=== PATIENT | female | born 1985 | race Caucasian/White ===

== ENCOUNTER 2020-10-20 07:02 | Inpatient (IN) | payer OTHER ==
[~2020-10-20 07:02] MED LIST: Scopolamine 1.5 MG Transdermal Patch TOP ONE; fentaNYL 250 MCG/5 ML SDV ONE
[2020-10-20] MEDS ORDERED: Dexamethasone 4 MG/ML SDV ONE (07:03)
[2020-10-20] MEDS ORDERED: Neostigmine Methylsulfate 1 MG/ML 5 ML Syringe ONE (07:03)
[2020-10-20] MEDS ORDERED: Glycopyrrolate 0.2 MG/ML 5 ML MDV ONE (07:03)
[2020-10-20] MEDS ORDERED: Rocuronium 50 MG/5 ML Vial ONE (07:03)
[2020-10-20] MEDS ORDERED: Succinylcholine 200 MG/10 ML MDV ONE (07:03)
[2020-10-20] MEDS ORDERED: Ondansetron 4 MG/2 ML SDV ONE (07:03)
[2020-10-20] MEDS ORDERED: Propofol 200 MG/20 ML SDV ONE (07:03)
[2020-10-20] MEDS ORDERED: Lactated Ringers 1,000 ML ONE (07:05)
[2020-10-20] MEDS ORDERED: Acetaminophen 500 MG Tab PO ONE (07:45)
[2020-10-20] MEDS ORDERED: Celecoxib 200 MG Cap PO ONE (07:45)
[2020-10-20] MEDS ORDERED: Scopolamine 1.5 MG Transdermal Patch TOP ONE (07:45)
[2020-10-20] MEDS ORDERED: cefOXitin 2 GM Vial ONE (07:49)
[2020-10-20] MEDS: Dextrose 5%-Lactated Ringers 1,000 ML IV SCH ×2 (08:40→12:49)
[2020-10-20] MEDS ORDERED: cefOXitin 2 GM in Sodium Chloride 0.9% 50 ML IV ONE (09:00)
[2020-10-20] MEDS ORDERED: ceFAZolin 2 GM in Premix Bag 1 BAG IV ONE (09:00)
[2020-10-20] MEDS ORDERED: Ketamine 50 MG in Sodium Chloride 0.9% 49.5 ML IV SCH (09:30)
[2020-10-20] MEDS ORDERED: Ketamine 500 MG/5 ML MDV IV SCH (09:30)
[2020-10-20] MEDS ORDERED: Ropivacaine 50 ML, dexAMETHasone 8 MG, EPINEPHrine 0.4 MG, Sodium Chloride 0.9% 27.6 ML NERVRT SCH ×4 (09:30)
[2020-10-20] MEDS ORDERED: Magnesium Sulfate 3 GM in Sodium Chloride 0.9% 100 ML IV SCH (09:30)
[2020-10-20] MEDS ORDERED: fentaNYL 250 MCG/5 ML SDV ONE (09:51)
[2020-10-20] MEDS ORDERED: Magnesium Sulfate 4.8 GM in Sodium Chloride 0.9% 250 ML IV ONE (10:00)
[2020-10-20] MEDS ORDERED: Labetalol 20 MG/4 ML Syringe ONE (10:17)
[2020-10-20] MEDS ORDERED: fentaNYL 100 MCG/2 ML SDV IVPUSH ONE ×2 (11:08→11:45)
[2020-10-20] MEDS ORDERED: hydrOXYzine HCL 100 MG/2 ML SDV IM ONE (11:08)
[2020-10-20] MEDS ORDERED: Ondansetron 4 MG/2 ML SDV IVPUSH ONE (11:23)
[2020-10-20] MEDS ORDERED: amLODIPine 5 MG Tab PO ONE (12:30)
[2020-10-20] MEDS: HYDROmorphone 1 MG/ML Syringe IV PRN ×5 (12:59→22:55)
[2020-10-20] MEDS: Ondansetron 4 MG/2 ML SDV IVPUSH PRN ×3 (12:59→23:01)
[2020-10-20] MEDS ORDERED: Calcium Gluconate 10% 1 GM/10 ML SDV IVPUSH PRN (13:00)
[2020-10-20] MEDS ORDERED: diphenhydrAMINE 50 MG/ML SDV IVPUSH PRN (13:00)
[2020-10-20] MEDS ORDERED: Labetalol 20 MG/4 ML Syringe IVPUSH PRN (13:00)
[2020-10-20] MEDS ORDERED: HYDROmorphone 0.5 MG/0.5 ML Syringe IVPUSH PRN (13:00)
[2020-10-20] MEDS ORDERED: Acetaminophen 500 MG Tab PO PRN (13:00)
[2020-10-20] MEDS: hydrOXYzine HCL 100 MG/2 ML SDV IM PRN ×2 (13:05→19:40)
[2020-10-20] MEDS ORDERED: Dextrose 5%-Lactated Ringers 1,000 ML IV SCH (14:00)
[2020-10-20] MEDS: Cyclobenzaprine 10 MG Tab PO PRN ×2 (14:20→23:52)
[2020-10-20] MEDS: Acetaminophen 500 MG Tab PO SCH ×2 (15:18→22:26)
[2020-10-20] MEDS: Pantoprazole 40 MG Vial IVPUSH SCH (15:44)
[2020-10-20] MEDS: Metoclopramide 10 MG/2 ML SDV IVPUSH PRN ×2 (15:45→23:33)
[2020-10-20] MEDS: MVI, Adult with Vitamin K 10 ML, Thiamine 200 MG, Zinc/Copper/Manganese/Selenium 1 ML i... IV SCH ×4 (16:41)
[2020-10-20] MEDS: cefOXitin 2 GM in Sodium Chloride 0.9% 50 ML IV SCH ×2 (17:11→23:42)
[2020-10-20] MEDS: Heparin Sodium 5,000 Units/ML Vial SUBCUT SCH (19:47)
[2020-10-20] MEDS: LORazepam 2 MG/ML SDV IVPUSH PRN (20:04)
[2020-10-21] MEDS: HYDROmorphone 1 MG/ML Syringe IV PRN ×3 (00:51→06:02)
[2020-10-21] MEDS: Ondansetron 4 MG/2 ML SDV IVPUSH PRN ×3 (03:02→13:17)
[2020-10-21] MEDS: Metoclopramide 10 MG/2 ML SDV IVPUSH PRN (05:59)
[2020-10-21] MEDS: Acetaminophen 500 MG Tab PO SCH (06:05)
[2020-10-21] MEDS: cefOXitin 2 GM in Sodium Chloride 0.9% 50 ML IV SCH ×3 (06:06→18:26)
[2020-10-21] MEDS ORDERED: Dextrose 5%-Lactated Ringers 1,000 ML IV SCH (07:15)
[2020-10-21] MEDS: HYDROmorphone/Normal Saline 15 MG/30 ML PCA IV PRN (07:37)
[2020-10-21] MEDS: Heparin Sodium 5,000 Units/ML Vial SUBCUT SCH ×2 (07:46→20:51)
[2020-10-21] MEDS ORDERED: Naloxone 0.4 MG/ML SDV IV PRN (08:00)
--- NOTE | 2020-10-21 08:51 | PN ---
DATE OF SERVICE: 10/21/2020 SUBJECTIVE: Ambika is postoperative day #1. Her upper GI results show transit of oral contrast. She did have an emesis of 70 mL but has been dry heaving. There is a small amount of blood, thought to be bleeding from the anastomosis. She has been afebrile. Blood pressure has been elevated, and she was given labetalol, also with a magnesium sulfate IV, and this was discontinued, and calcium gluconate was given to reverse its effects. Oral intake 110, emesis 70, and output 1100. JYOTI drain put out 90 mL of a light pink drainage. REVIEW OF SYSTEMS: The remainder of a review of systems is negative for any pertinent positives and negatives. OBJECTIVE: GENERAL: Ambika Bullock is a 35-year-old female. VITAL SIGNS: TPR is 98.4, 110, and 16 and blood pressure 142/82. HEENT: Negative. NECK: Supple. HEART: Regular rate and rhythm. LUNGS: Clear. ABDOMEN: The dressing is dry and intact. The JYOTI drain is intact. EXTREMITIES: Without peripheral edema. ASSESSMENT: 1. Nausea associated with swelling at the anastomosis. 2. Laparoscopic Cong-en-Y gastric bypass surgery. 3. Liver biopsy. 4. Repair of a diaphragmatic hernia. POSTOPERATIVE DIAGNOSES: 1. Morbid obesity. 2. Hepatomegaly. 3. Diaphragmatic hernia. DATE OF PROCEDURE: 10/20/2020. SURGEON: Siddharth Zamudio MD PLAN: 1. Discontinue step 1 gastric bypass diet. 2. N.p.o., ice chips only. 3. Dilaudid WEB ANALYST. 4. Discontinue all oral medications, including Norvasc; if blood pressure is elevated, give IV labetalol. 5. Decrease IV to 100 mL per hour. We will evaluate p.r.n. or in the a.m. Miguelina Cagle PA-C /[id number]
[2020-10-21] MEDS ORDERED: amLODIPine 5 MG Tab PO SCH (09:00)
[2020-10-21] MEDS ORDERED: Celecoxib 200 MG Cap PO SCH (09:00)
--- NOTE | 2020-10-21 09:05 | CR ---
[facility] HISTORY: Postbariatric surgery FINDINGS: Patient swallowed water-soluble contrast. Upright views of the abdomen show no evidence of extravasation. There is no passage of contrast into the proximal small bowel. There is a surgical drain in the left upper quadrant IMPRESSION: Status post bariatric surgery No passage of barium into the proximal small intestine may represent some obstruction at the anastomosis No extravasation
[2020-10-21] MEDS: LORazepam 2 MG/ML SDV IVPUSH PRN (10:13)
[2020-10-21] MEDS: MVI, Adult with Vitamin K 10 ML, Thiamine 200 MG, Zinc/Copper/Manganese/Selenium 1 ML i... IV SCH ×8 (14:45→16:47)
[2020-10-21] MEDS ORDERED: Ondansetron 4 MG Tab.DIS PO PRN (17:36)
[2020-10-21] MEDS: Pantoprazole 40 MG Vial IVPUSH SCH (18:27)
[2020-10-22] MEDS ORDERED: Benzocaine/Cetylpyridinium/Menthol Lozenge MUCMEM PRN (07:11)
[2020-10-22] MEDS: HYDROmorphone/Normal Saline 15 MG/30 ML PCA IV PRN (07:15)
--- NOTE | 2020-10-22 08:24 | PN ---
DATE OF SERVICE: 10/22/2020 HISTORY OF PRESENT ILLNESS: Ambika's oral intake was 700 on ice chips, output 1200; hemoglobin 8.7, down from 11.3 the day prior. She was straight cathed after a bladder scan showed 500 mL in her bladder, and when she was straight cathed, she had 600 mL output. She reports that she normally gets up frequently during the night to urinate and states she is not a good sleeper. When she wakes up, she has to urinate but reports the last 2 voids were normal and larger amount. She had 1 small hard bowel movement. Vital signs: Temp max of 99.3. She has been up ambulating. When she does ambulate, pulse rate does go up between the 120s and 150s. Blood pressure diastolic has been 88 to 92. She does report a sore throat, but the pain is getting less with swallowing. REVIEW OF SYSTEMS: The remainder of the review of systems is negative for any pertinent positives and negatives. OBJECTIVE: GENERAL: Ambika is a pleasant 35-year-old female. VITAL SIGNS: TPR 99/104/16 and blood pressure 128/77. HEENT: Negative. NECK: Supple. HEART: Regular rate and rhythm. LUNGS: Clear. ABDOMEN: The dressing is dry and intact. The JYOTI drain is intact, draining serosanguineous drainage, 180 over the past 24 hours. An abdominal binder has been on while she has been up, currently off when lying in bed. EXTREMITIES: Without peripheral edema. ASSESSMENT: 1. Nausea associated with swelling at the anastomosis. 2. Laparoscopic Cong-en-Y gastric bypass surgery. 3. Liver biopsy. 4. Repair of a diaphragmatic hernia. 5. Morbid obesity. 6. Hepatomegaly. 7. Diaphragmatic hernia. DATE OF PROCEDURE: 10/20/2020. SURGEON: Siddharth Zamudio MD PLAN: 1. She may gradually increase to sips of liquid very sparingly as tolerated. 2. Flomax 0.4 mg p.o. b.i.d. 3. Check CBC, CMP, mag, and phos in the a.m. 4. Discontinue oxygen per nasal cannula as this is drying out her throat she thinks too much and her oximetry has been okay. 5. Cepacol lozenges 1 every 2 hours p.r.n. sore throat. 6. We will restart her Norvasc 10 mg p.o. today. 7. Check hemoglobin at 1400 hours today. Call results. 8. Continue the use of incentive spirometer. 9. We will evaluate p.r.n. or in the a.m. Miguelina Cagle PA-C /[id number]
[2020-10-22] MEDS ORDERED: Cyanocobalamin (Vitamin B12) 1,000 MCG/ML SDV IM ONE (09:00)
[2020-10-22] MEDS: Heparin Sodium 5,000 Units/ML Vial SUBCUT SCH ×3 (09:15→20:21)
[2020-10-22] MEDS: Tamsulosin 0.4 MG Cap.ER PO SCH ×2 (09:16→16:35)
[2020-10-22] MEDS: amLODIPine 5 MG Tab PO SCH (09:16)
[2020-10-22] MEDS: MVI, Adult with Vitamin K 10 ML, Thiamine 200 MG, Zinc/Copper/Manganese/Selenium 1 ML i... IV SCH ×4 (16:20)
[2020-10-22] MEDS: cefOXitin 2 GM in Sodium Chloride 0.9% 50 ML IV SCH ×2 (16:21→21:28)
[2020-10-22] MEDS: Pantoprazole 40 MG Vial IVPUSH SCH (16:21)
[2020-10-23] MEDS: HYDROmorphone/Normal Saline 15 MG/30 ML PCA IV PRN ×2 (02:09→22:44)
[2020-10-23] MEDS: cefOXitin 2 GM in Sodium Chloride 0.9% 50 ML IV SCH ×4 (05:14→20:59)
[2020-10-23] MEDS ORDERED: Iopamidol 612 MG/ML 50 ML SDV PO ONE (07:36)
[2020-10-23] MEDS ORDERED: Iopamidol 612 MG/ML 100 ML Bottle IV PRN (08:12)
[2020-10-23] MEDS ORDERED: Sodium Chloride 0.9% 10 ML Syringe FLUSH PRN (08:12)
[2020-10-23] MEDS ORDERED: Sodium Chloride 0.9% 75 ML IV SCH (08:15)
[2020-10-23] MEDS: Heparin Sodium 5,000 Units/ML Vial SUBCUT SCH ×2 (09:19→20:50)
[2020-10-23] MEDS: amLODIPine 5 MG Tab PO SCH (09:20)
--- NOTE | 2020-10-23 09:33 | CRLCT ---
Indication: Hemoglobin drop. Technique: Contrast enhanced CT abdomen and pelvis 100 mL Isovue. Comparison: No comparison Findings: The heart size is normal. There is no pericardial effusion. Lingular left lower lobe and right mid and right basilar atelectasis. No effusion. Liver pancreas adrenal glands, spleen appears unremarkable. Sludge or vicarious excretion contrast gallbladder. Normal caliber abdominal aorta. Kidneys are unremarkable. Gastric bypass change. There is no contrast extravasation visualized. Drain in the left anterior abdomen. Some minimal slight stranding near the gastric jejunal anastomosis/staple line of the excluded stomach which could be postsurgical depending on surgical history. There is no free air. The excluded stomach is slightly prominent without significant dilatation of the biliopancreatic limb. Normal caliber abdominal aorta. Minimal diverticulosis. No bowel obstruction. Normal appendix. Hysterectomy. There is no free fluid, active hemorrhage seen/fluid collections. Left lateral subcutaneous edema along the left lateral abdominal wall with subcutaneous emphysema. No suspicious bony lesions are seen. Impression: 1. Gastric bypass changes. Drain in the left anterior abdomen. No fluid collections/fluid or active hemorrhage seen. Slight stranding near the gastrojejunal anastomosis/staple line and excluded stomach could be postsurgical depending on surgical history. Slight prominence of the excluded stomach. No significant dilatation of bili of pancreatic limb. 2. Diverticulosis. Please note that all CT scans at this facility use dose modulation, iterative reconstruction, and/or weight-based dosing when appropriate to reduce radiation dose to as low as reasonably achievable. Dictated by Regina Rothman MD @ Oct 23 2020 9:15AM Signed by Dr. Regina Rothman @ Oct 23 2020 9:32AM
[2020-10-23] MEDS: NACL IV SCH ×8 (10:12→16:40)
[2020-10-23] MEDS: SODIUM CHLORIDE IV SCH ×8 (10:12→16:40)
[2020-10-23] MEDS: POTASSIUM PHOS IV SCH ×8 (10:12→16:40)
[2020-10-23] MEDS: Tamsulosin 0.4 MG Cap.ER PO SCH ×2 (10:13→16:39)
--- NOTE | 2020-10-23 12:14 | PN ---
DATE OF SERVICE: 10/23/2020 SUBJECTIVE: Ambika states she is feeling better. The Flomax has helped her urination. She has had 690+ because she misses the hat. Her oral intake recorded was 690. She states that when she swallows, she can feel whatever she is swallowing, but there is no pain unless she swallows too big a gulp or too fast. Then, she states it will be painful for just a few seconds. No emesis. She is not spitting up any blood. Has not had a bowel movement. Up ambulating. Using DIRECTOR SALES SUPPORT for pain. She reports the only pain she has is right at the JYOTI drain site. Vital signs have been stable. Pulse rate remains in the 90s for the past 24 hours. Using her incentive spirometer, Ambika reports that she is feeling better. LABORATORY DATA: Hemoglobin went from 14 on admission to 11.3 on the , 8.7 on 10/22. Yesterday, the hemoglobin was rechecked at 1400 and was 8.5. This morning, hemoglobin is 7.3, white count 17.5. Blood sugar 110, calcium is 7.7, phosphorus is 2.1, potassium is 3.9. REVIEW OF SYSTEMS: Remainder of review of systems negative for any pertinent positives or negatives. OBJECTIVE: GENERAL: Ambika is a pleasant 35-year-old female. She is alert, oriented. She had been afebrile. VITAL SIGNS: She had been afebrile. 0400 and her temp was 99.7, pulse 93, respirations 16, and the blood pressure 131/60. HEENT: Negative. NECK: Supple. HEART: Regular rate and rhythm. LUNGS: Clear. ABDOMEN: Soft, nontender. JYOTI drain is intact, draining 130 mL of a serosanguineous drainage. EXTREMITIES: Without peripheral edema. ASSESSMENT: 1. A bleed at the anastomosis. 2. Nausea associated with swelling anastomosis, resolving. 3. Laparoscopic Cong-en-Y gastric bypass surgery. a. Liver biopsy. b. Repair of diaphragmatic hernia. Date of procedure 10/20/2020. Surgeon: Siddharth Zamudio. PLAN: 1. Give 1 unit of packed red blood cells today stat. 2. Check CBC 2 hours after the 1 unit of blood has been transfused. 3. Check CT scan of abdomen and pelvis with 100 mL of water-soluble contrast and IV contrast. 4. Give K-Phos 45 mmol IV today. 5. Check CBC, CMP, mag, phos in a.m. 6. Radiology will call with CT of abdomen. 7. Call with results of CBC after 2 units of packed red blood cells. 8. We will evaluate p.r.n. or in a.m. Miguelina Cagle PA-C /[id number]
[2020-10-23] MEDS: MVI, Adult with Vitamin K 10 ML, Thiamine 200 MG, Zinc/Copper/Manganese/Selenium 1 ML i... IV SCH ×4 (16:02)
[2020-10-23] MEDS: Pantoprazole 40 MG Vial IVPUSH SCH (16:05)
[2020-10-24] MEDS: cefOXitin 2 GM in Sodium Chloride 0.9% 50 ML IV SCH (04:39)
[2020-10-24] MEDS: HYDROmorphone 2 MG Tab PO PRN ×2 (07:14→11:21)
--- NOTE | 2020-10-24 07:51 | DISCH ---
ADMISSION DIAGNOSES: 1. Morbid obesity. 2. Body mass index 39.5. 3. Hypertension. DISCHARGE DIAGNOSES: 1. Bleeding at the anastomosis, resolved secondary to dry heaving. 2. Hemoglobin 7.3 with 1 unit of packed red blood cells. 3. Nausea associated with swelling at the anastomosis, resolved. 4. Laparoscopic Cong-en-Y gastric bypass surgery. a. Liver biopsy. b. Repair of diaphragmatic hernia. Date of procedure: 10/20/2020. Surgeon: Siddharth Zamudio MD. HISTORY: Ambika Bullock is a 35-year-old female with longstanding history of morbid obesity and increasing comorbidities. After preoperative evaluation and discussion of possible risks and possible complications, she elected to proceed with surgical procedure. HOSPITAL COURSE: Ambika had her surgery on 10/20/2020. She had no operative complications. On postoperative day #1, her upper GI did empty very slowly. She did have quite a bit of nausea and some blood associated with emesis, which was thought to be from the anastomosis from dry heaving. Blood pressure was elevated. She was given labetalol. Magnesium sulfate IV was stopped and reversed with calcium gluconate. She was n.p.o. with ice chips. On 10/22/2020, diet was advanced so she can gradually increase sips of liquid, and she was unable to void and did have 1 straight cath. Started on Norvasc. Her blood pressure did remain a little bit elevated. On 10/23/2020, hemoglobin dropped to 7.3. She was given 1 unit of packed red blood cells and K-Phos was replaced. A CT scan was done and it was negative. She was up, ambulating. Activity good. Pain was controlled. Vital signs stable. She will be starting a step 1 gastric bypass diet today. JYOTI drain removed and able to be discharged to home. To call in 2 days on 10/26/2020 and diet will be advanced if she is tolerating the step 1. PHYSICAL EXAMINATION: GENERAL: Ambika Bullock is a pleasant 35-year-old female. VITAL SIGNS: Height is 5 feet 3 inches, weight is 233 pounds. TPR 99.9, 88, 20, blood pressure 110/55. HEENT: Negative. NECK: Supple. HEART: Regular rate and rhythm. LUNGS: Clear. ABDOMEN: Sutures intact. Trocar sites look good. JYOTI drain was removed. Abdominal binder is on. EXTREMITIES: Without peripheral edema. DISPOSITION: Discharged to home. CONDITION: Stable and improving. FOLLOWUP: Appointment with Miguelina Cagle PA-C, at [facility] on 11/01/2020 at 10 a.m. she is to have a CBC done prior to that appointment. HOME MEDICATIONS: 1. Dilaudid 2 mg p.o. q.6 hours p.r.n. pain, #28. 2. Zofran ODT 4 mg every 4 hours p.r.n. nausea. 3. She is to resume her Norvasc 10 mg p.o. daily. 4. Start the Celebrex 200 mg p.o. b.i.d. for 14 days. 5. Restart baclofen p.o. b.i.d. 6. To discontinue all vitamins and supplements until after first postop appointment. ACTIVITY: No lifting greater than 10 pounds for 2 weeks. Other activity: Walk 6 times daily inside your home. Driving: Do not drive for 1 week. Shower/bathing: May shower. DISCHARGE INSTRUCTIONS: Keep operative site clean and dry. Wear abdominal binder for 2 weeks and then as tolerated. SPECIAL INSTRUCTIONS: Notify provider if any fever, increased pain, swelling, redness, drainage, nausea, or vomiting. Use incentive spirometer 10 times every hour while awake. /[id number]
[2020-10-24] MEDS ORDERED: Magnesium Hydroxide 400 MG/5 ML Susp 30 ML Cup PO PRN (07:54)
[2020-10-24] MEDS: Tamsulosin 0.4 MG Cap.ER PO SCH (08:34)
[2020-10-24] MEDS ORDERED: Fluconazole 100 MG Tab PO SCH (09:00)
[2020-10-24] MEDS: amLODIPine 5 MG Tab PO SCH (09:04)
--- NOTE | 2020-10-31 10:17 | OR ---
DATE OF PROCEDURE: 10/20/2020 SURGEON: Siddharth Zamudio MD PREOPERATIVE DIAGNOSIS: Morbid obesity. POSTOPERATIVE DIAGNOSES: 1. Morbid obesity. 2. Marked hepatomegaly. 3. Paraesophageal diaphragmatic hernia. OPERATIVE PROCEDURE: Diagnostic laparoscopy with: 1. Laparoscopic Cong-en-Y gastric bypass with long limb gastroenterostomy (64786). 2. Francisco-Cut needle liver biopsy (39569). 3. Repair of paraesophageal diaphragmatic hernia (67248). ANESTHESIA: General. ELECTRICAL LOGGER: Miguelnia Cagle PA-C INDICATION FOR PROCEDURE: This is a 35-year-old presenting with longstanding morbid obesity and increasingly significant comorbidities. After preoperative evaluation and discussion, she wished to proceed with a gastric bypass procedure. Potential risks of the procedure including bleeding, infection, leaks from various GI tract closures, problems with bowel obstruction over time as well as possibility of cardiopulmonary, septic, or hemorrhagic complications leading to were discussed, and the patient wishes to proceed. DETAILS OF PROCEDURE: The patient was taken to the operating room, and after general endotracheal anesthesia was induced, placed in a lithotomy position and the abdomen prepped and draped. 15 cm inferior and 5 cm left of the xiphoid process, a transverse incision was made and the peritoneal cavity entered under direct vision with an Optiview trocar and inflated to 15 mmHg pressure with CO2. Laparoscope was reinserted. No underlying trocar insertion site injuries were seen. Following this, bilateral transversus abdominis plane blocks were placed and 5 additional trocars were placed across the upper and mid abdomen. The patient was noted to have a marked hepatomegaly with liver volume being roughly 2 to 3 times normal and grossly fatty infiltrated. Francisco-Cut needle biopsies were obtained from the left lobe of the liver. Minimal bleeding from the biopsy sites was controlled with electrocautery. The omentum was then divided in the midline at the level of the transverse colon. This allowed identification of small bowel at the ligament of Treitz. Small bowel was then traced out 125 cm distal to that point where it was divided transversely with a KATHRYN stapler. Small bowel was then traced out additional 175 cm where the [id number] enteroenterostomy was accomplished with internal firing of the Endo-KATHRYN 60 mm stapler. Common opening was then closed transversely with the same stapler and angles anastomosed and mesenteric defect approximated with some 0 Ethibond stitch along with 4 mL of fibrin sealant. Divided end of the Cong limb was then from the mesentery for a few centimeters, which allowed an antecolic position of the Cong limb up to the level of the gastroesophageal junction without tension. The liver was then retracted anteriorly. The patient was noted to have a moderate-sized paraesophageal diaphragmatic hernia containing some omentum along with perigastric fat. This was reduced and the peritoneum overlying incised and reflected downward. An anterior repair of the diaphragmatic hernia was accomplished with 0 Ethibond suture, reinforced with PTFE pledgets. Gastrointestinal catheter was then inflated 15 mL, pulled up snugly against the EP junction. Gastric wall over the apex balloon was then marked with electrocautery and balloon catheter deflated and pulled up into the esophagus. The lesser omental tissue adjacent to the gastric cardia was then incised allowing dissection behind the stomach at the level of cauterized sherri on the gastric cardia where the initial staple line was applied transversely with KATHRYN stapler. The pouch formation was included with additional firings of KATHRYN darvin up to and through the angle of His. Upon completion of the pouch, both staple lines were noted to be intact. The anvil of a 25 mm EEA stapler was then attached to Gilliam sump type tube, latter brought down through the small opening in the gastric pouch, allowing the anvil likewise to be pulled down to within the gastric pouch. The divided end of the Cong limb was then opened and the main body of EEA stapler passed several centimeters in the lumen of the small bowel, brought up the anvil, united with it, thus creating the gastrojejunostomy. Upon removal of stapler, double donuts of mucosa were noted within it. Small bowel was closed off with a vascular staple line. Gastrojejunostomy was reinforced with some 3-0 Vicryl seromuscular stitch along with fibrin sealant. Leak test was accomplished with injection of 120 mL of air in the gastric pouch while it was submerged with cefoxitin-containing saline solution. No leaks were identified. A single Raulito-Wood drain was taken out through the left lateral trocar site and positioned adjacent to the gastric cardia and from there up into the splenic fossa. With no further problems noted, trocars were removed. The peritoneal cavity deflated. The incisions were closed with some 4-0 Vicryl skin stitch, which was also used to fix the drain. The patient was taken to the recovery room in satisfactory condition. Physician administrative assistant front desk, Miguelina Cagle, played an essential role in assisting in this case, helping to position the patient, retract structures as needed, as well as suturing and cutting sutures when indicated. Her presence improved patient safety and decreased the operative time. Siddharth Zamudio MD /[id number]
== END 2020-10-24 11:25 | disposition home or self-care (01) | DRG 621 ==
LOC: JP.SDSSCHI 07:02 → JP.SDS 07:02 → JP.MS 07:02 → UNDOADMIN 07:02 → JP.MS 11:00 → EDSTATUS 12:15
PROVIDERS: ADMIT Surgery; ATTEND Surgery
PROC: 0D164ZA Bypass Stomach to Jejunum, Percutaneous Endoscopic Approach (ICD-10-PCS; 2020-10-20)
PROC: 0FB24ZX Excision of Left Lobe Liver, Percutaneous Endoscopic Approach, Diagnostic (ICD-10-PCS; 2020-10-20)
PROC: 0BQT4ZZ Repair Diaphragm, Percutaneous Endoscopic Approach (ICD-10-PCS; 2020-10-20)
PROC: 30233N1 Transfusion of Nonautologous Red Blood Cells into Peripheral Vein, Percutaneous Approach (ICD-10-PCS; principal; 2020-10-23)
DX: E66.01 Morbid (severe) obesity due to excess calories (principal); Z68.39 Body mass index [BMI] 39.0-39.9, adult; I10 Essential (primary) hypertension; Z90.89 Acquired absence of other organs; Z79.899 Other long term (current) drug therapy; Z91.040 Latex allergy status; Z88.8 Allergy status to other drugs, medicaments and biological substances
CPT/HCPCS: 36415; 36430; 51701; 74177; 74240; 74240-26; 80053; 83735; 84100; 85025; 85027; 86850; 86900; 86901; 86920; 86922; 88307; 88313; 93005; 93010; 94762; A9270-GY; C9113; J0171; J0330; J0610; J0694; J1100; J1170; J1644; J2060; J2405; J2704; J2710; J2765; J2795; J3010; J3410; J3411; J3420; J3475; J3490; J7050; J7120; J7121; P9016; Q9967